=== PATIENT | female | born 1990 | race Caucasian/White ===

== ENCOUNTER 2016-12-10 10:49 | Inpatient (IN) | END 2016-12-13 18:30 | disposition home or self-care (01) | DRG 775 | DX: O70.0 First degree perineal laceration during delivery (principal); O71.4 Obstetric high vaginal laceration alone; Z37.0 Single live birth; Z3A.39 39 weeks gestation of pregnancy ==

== ENCOUNTER 2017-03-11 00:35 | Emergency (ER) | END 2017-03-11 09:47 | disposition home or self-care (01) ==